=== PATIENT | female | born 1985 | race Caucasian/White ===

== ENCOUNTER → 2017-10-21 | Outpatient (CLI) | payer BC | LOC: MERGE 11:35 → FIMAGING 11:35 | PROVIDERS: ATTEND Obstetrics & Gynecology | DX: Z03.74 Encounter for suspected problem with fetal growth ruled out (principal); Z3A.33 33 weeks gestation of pregnancy ==

== ENCOUNTER 2017-11-15 09:17 | Day surgery (SDC) | payer BC ==
[2017-11-15] MEDS ORDERED: OLIVE OIL 118 ML BTL MISC ONE (10:19)
[2017-11-15] MEDS ORDERED: TERBUTALINE SULFATE 1 MG/ML VIAL IV ONE (10:19)
[2017-11-15 10:37] LABS: PLATELET COUNT 241 10^3/uL (150-400)
== END 2017-11-15 12:30 | disposition home or self-care (01) ==
LOC: FLD 09:17 → UNDOADMIN 09:17 → MERGE 09:17 → FOBOP 09:17 → EDSTATUS 10:00 → UNDODISIN 11:30 → FOBOP 12:30
PROVIDERS: ATTEND Hospitalist
DX: O32.1XX0 Maternal care for breech presentation, not applicable or unspecified (principal)
CPT/HCPCS: J3105